=== PATIENT | female | born 1995 ===

== ENCOUNTER 2019-06-15 14:05 | Emergency (ER) | payer SELFPAY | END 2019-06-15 15:30 | disposition left against medical advice (07) | LOC: ED 14:05 | DX: T16.1XXA Foreign body in right ear, initial encounter (principal); Z53.21 Procedure and treatment not carried out due to patient leaving prior to being seen by health care provider; X58.XXXA Exposure to other specified factors, initial encounter; Y93.89 Activity, other specified; Y92.488 Other paved roadways as the place of occurrence of the external cause; Y99.8 Other external cause status ==